=== PATIENT | female | born 1970 | race Caucasian/White ===

== ENCOUNTER 2018-12-19 06:02 | Inpatient (IN) ==
--- NOTE | 2018-12-03 08:44 | EKG Report ---
Test Performed on : 12/03/2018 08:25:42 AM Test Reason : PAT Blood Pressure : / mmHG Vent. Rate : 077 BPM Atrial Rate : 077 BPM P-R Int : 154 ms QRS Dur : 082 ms QT Int : 390 ms P-R-T Axes : 050 054 060 degrees QTc Int : 441 ms Normal sinus rhythm. Normal ECG No previous ECGs available Confirmed by Mika Trevizo MD ([id number]) on 12/03/2018 6:06:45 PM
[2018-12-19] MEDS ORDERED: REGLAN ONE (06:37)
[2018-12-19] MEDS ORDERED: PEPCID ONE (06:37)
[2018-12-19] MEDS ORDERED: LR 1,000 ML ONE ×2 (06:37→07:30)
[2018-12-19] MEDS ORDERED: MEFOXIN 2 GM/NS 2 GM/50 ML IVPB ONE (06:37)
[2018-12-19] MEDS ORDERED: ENTEREG ONE (06:37)
[2018-12-19] MEDS ORDERED: VERSED ONE (07:10)
[2018-12-19] MEDS ORDERED: DIPRIVAN 1% ONE (07:10)
[2018-12-19] MEDS ORDERED: FENTANYL ONE ×2 (07:10→11:41)
[2018-12-19] MEDS ORDERED: QUELICIN (DOSE) ONE (07:13)
[2018-12-19] MEDS ORDERED: ROBINUL ONE (07:13)
[2018-12-19] MEDS ORDERED: NORCURON ONE ×2 (07:13→10:22)
[2018-12-19] MEDS ORDERED: SODIUM CHLORIDE 0.9% 10 ML ONE ×2 (07:13→07:59)
[2018-12-19] MEDS ORDERED: XYLOCAINE-MPF 2% ONE (07:13)
[2018-12-19] MEDS ORDERED: MARCAINE 0.25% ONE (07:59)
[2018-12-19] MEDS ORDERED: EXPAREL 1.3% ONE (07:59)
[2018-12-19 09:15] LABS: URINE SOURCE CATH
[2018-12-19] MEDS ORDERED: ZOFRAN ONE (09:22)
[2018-12-19] MEDS ORDERED: DECADRON ONE (09:22)
[2018-12-19 09:26] LABS: BILIRUBIN URINE NEGATIVE (NEGATIVE); BLOOD URINE MODERATE (NEGATIVE); COLOR YELLOW; GLUCOSE URINE NEGATIVE (NEGATIVE); KETONE URINE NEGATIVE (NEGATIVE); LEUKOCYTES URINE NEGATIVE (NEGATIVE); NITRITE URINE NEGATIVE (NEGATIVE); PROTEIN URINE NEGATIVE (NEGATIVE); SP GRAVITY URINE 1.009; TURBIDITY URINE CLEAR (CLEAR); UROBILINOGEN URINE NORMAL (NORMAL)
[2018-12-19 09:27] LABS: UR EPITHELIAL CELLS <10 /HPF (<10); URINE BACTERIA NEGATIVE /HPF; URINE RBC <10 /HPF (<10); URINE WBC <10 /HPF (<10)
[2018-12-19] MEDS ORDERED: KETAMINE ONE (10:35)
[2018-12-19] MEDS: DILAUDID ONE ×7 (12:02→13:02)
[2018-12-19] MEDS ORDERED: D5 1/2 NS 1,000 ML ONE (12:03)
[2018-12-19] MEDS ORDERED: MORPHINE IM PRN (12:32)
[2018-12-19] MEDS ORDERED: ULTRAM ONE (12:50)
[2018-12-19] MEDS: ULTRAM PO PRN ×2 (12:55→15:38)
[2018-12-19] MEDS: OFIRMEV 1000 MG/ISOTONIC SOLN 1,000 MG/100 ML BOTTLE IV SCH ×2 (15:40→21:36)
[2018-12-19] MEDS: MEFOXIN 2 GM in D5W 50 ML IV SCH ×2 (17:06→21:41)
[2018-12-19] MEDS: MORPHINE IV PRN ×2 (17:29→21:51)
[2018-12-19] MEDS: ZOFRAN IV PRN (17:38)
--- NOTE | 2018-12-19 19:25 | OPERATIVE NOTE ---
PROCEDURE DATE: 12/19/2018 PREOPERATIVE DIAGNOSIS: History of complicated diverticulitis, perforation. POSTOPERATIVE DIAGNOSIS: Perforated diverticulitis. PROCEDURE: Laparoscopic robot-assisted converted to open low anterior resection with mobilization of the splenic flexure. SURGEON: Dr. Abdirashid Hernandez. ASSISTANTS: 1. Dr. Butcher. 2. Dr. Watson. ANESTHESIA: General endotracheal. INTRAOPERATIVE FINDINGS: As dictated. COMPLICATIONS: None at time dictation. EBL: 500 mL. SPECIMENS REMOVED: Colon. BRIEF HISTORY: A 48-year-old female with perforated diverticulitis felt she would benefit from a colectomy. The risks, benefits, alternatives were discussed and documented chart all questions answered. DESCRIPTION OF PROCEDURE: After informed consent was obtained patient brought to the operative theatre, transferred op table placed supine position. General endotracheal anesthesia then performed without complication. A formal time-out was then performed confirming patient, date, procedure. All were in agreement. At that time attention was given the abdomen. We placed our first trocar using Optiview technique in the supraumbilical position. We connected insufflation, pneumoperitoneum was achieved. We then placed another trocar skilled nursing just between the umbilicus and the anterior superior iliac spine and then 2 more trocars on the left side and bindery assistant port in the right upper quadrant. Using these we docked the robot. We first turned our attention to the abdomen. She had a significant attachment up to the abdominal wall. We did a medial lateral approach to sigmoid colon isolating the vessels, see if we could get a window across, we then elevated, continued dissection somewhat down the descending colon and down to the rectum. We freed it up enough and maintained hemostasis enough that we were able to use the stapler across the rectum right at the rectosigmoid junction with good results. It should be noted we did not injure the ureter. We stayed off the sidewall. There was a pus pocket that we drained. Once we had done this we made a left lower quadrant incision, eviscerated the colon, put a pursestring stitch around it after sizing up per 25 stapler then ducked it back in. We initially tried to do an end-to-end anastomosis with an EEA stapler robotically, the anvil ripped out of the proximal end. We therefore converted to open, made a midline incision, took down the attempted staple line to facilitate more reach. We mobilized the splenic flexure all the way up. We did this open. Once we had done this we were able to mobilize enough to do a side-to-end anastomosis. We brought this anvil through taenia of the proximal colon, brought it down to the rectum. We did use a TA to come across additional parts of the sigmoid colon. We then brought the stapler down did an EEA with good results. There was 2 donuts noted. We tested under water. It was air tight. We then irrigated out the abdomen copiously. We closed both the left lower quadrant in 2 layers and the midline incision with a running loop PDS. We then closed all skin incisions after irrigating with ally. The patient tolerated the procedure well, was transferred back to recovery room. Family was updated. Both Dr. Butcher and Dr. Watson helped with the case. They helped with exposure given the patient's obesity and identification of important anatomy. cc: Abdirashid Hernandez MD MTDD
[2018-12-19] MEDS: PERIDEX MT SCH (21:36)
[2018-12-19] MEDS: HEPARIN SUBQ SCH (21:37)
[2018-12-20] MEDS: ULTRAM PO PRN ×4 (00:08→17:05)
[2018-12-20] MEDS: MEFOXIN 2 GM in D5W 50 ML IV SCH ×2 (02:21→08:04)
[2018-12-20] MEDS: OFIRMEV 1000 MG/ISOTONIC SOLN 1,000 MG/100 ML BOTTLE IV SCH ×3 (04:15→10:34)
[2018-12-20] MEDS: HEPARIN SUBQ SCH ×3 (06:22→22:08)
[2018-12-20] MEDS ORDERED: ULTRAM PO PRN (07:12)
[2018-12-20] MEDS: D5 1/2 NS 1,000 ML IV SCH ×2 (07:15→20:02)
[2018-12-20] MEDS ORDERED: ZYPREXA PO SCH (07:15)
[2018-12-20] MEDS: KLONOPIN PO SCH ×2 (07:59→22:09)
[2018-12-20] MEDS: ENTEREG PO SCH ×2 (07:59→22:09)
[2018-12-20] MEDS: NEXIUM PO SCH (08:01)
[2018-12-20] MEDS: VASOTEC PO SCH ×2 (08:01→22:10)
[2018-12-20] MEDS: MAG-OX PO SCH (08:01)
[2018-12-20] MEDS: COREG PO SCH ×2 (08:01→22:09)
[2018-12-20] MEDS: HYDROCHLOROTHIAZIDE PO SCH ×2 (08:02→22:09)
[2018-12-20] MEDS: ZYLOPRIM PO SCH (08:02)
[2018-12-20] MEDS: NEURONTIN PO SCH ×3 (08:02→17:42)
[2018-12-20] MEDS: ASPIRIN PO SCH (08:02)
[2018-12-20] MEDS: PROTONIX PO SCH (08:02)
[2018-12-20] MEDS: METAMUCIL PO SCH (08:03)
[2018-12-20] MEDS: SYNTHROID PO SCH (08:03)
[2018-12-20] MEDS: PERIDEX MT SCH ×2 (08:03→20:47)
[2018-12-20] MEDS: VYVANSE PO SCH (08:05)
[2018-12-20] MEDS: MORPHINE IV PRN ×2 (10:44→20:47)
[2018-12-20] MEDS: PHENERGAN PO PRN ×2 (10:52→20:47)
[2018-12-20] MEDS ORDERED: TYLENOL PO PRN (15:00)
[2018-12-20] MEDS: PATIENT'S OWN MED PO SCH (17:01)
--- NOTE | 2018-12-20 18:24 | GENERAL SURGERY PROGRESS NOTE ---
DATE: 12/20/2018 SUBJECTIVE: The patient seems to be doing okay. She is having a little bit of acid reflux, a little bit of nausea but not terrible. She has not passed gas yet. She has been up and sitting in a chair. Her abdominal pain seems to be appropriate. She has been hemodynamically stable from a surgical point of view, will await return of bowel function, encourage mobilization. I will start her on Protonix. cc: Abdirashid Hernandez MD
[2018-12-21] MEDS: D5 1/2 NS 1,000 ML IV SCH (05:56)
[2018-12-21] MEDS: HEPARIN SUBQ SCH ×3 (05:56→22:50)
[2018-12-21] MEDS: PROTONIX PO SCH ×2 (05:57→06:01)
[2018-12-21] MEDS: SYNTHROID PO SCH ×2 (05:57→06:01)
--- NOTE | 2018-12-21 09:20 | GENERAL SURGERY PROGRESS NOTE ---
DATE: 12/21/2018 Patient with a little bit of nausea and some emesis of clear liquids yesterday. She is having some difficulty getting up and moving around, but she has been hemodynamically stable. From a surgical point of view, will keep her on her diet right now. Will try to get Physical Therapy to mobilize her. Will get her Dubose catheter out today. She is on heparin. She is on Entereg. We have got her on pain medicine. Will try to get her through this, and await return of bowel function. cc: Abdirashid Hernandez MD
[2018-12-21] MEDS: ZOFRAN IV PRN ×2 (09:26→22:52)
[2018-12-21] MEDS: VASOTEC PO SCH ×2 (09:32→22:54)
[2018-12-21] MEDS: ASPIRIN PO SCH (09:32)
[2018-12-21] MEDS: MAG-OX PO SCH (09:32)
[2018-12-21] MEDS: ZYLOPRIM PO SCH (09:32)
[2018-12-21] MEDS: NEXIUM PO SCH (09:33)
[2018-12-21] MEDS: METAMUCIL PO SCH (09:33)
[2018-12-21] MEDS: KLONOPIN PO SCH ×2 (09:33→22:51)
[2018-12-21] MEDS: ENTEREG PO SCH ×2 (09:33→22:51)
[2018-12-21] MEDS: COREG PO SCH ×2 (09:33→22:52)
[2018-12-21] MEDS: HYDROCHLOROTHIAZIDE PO SCH ×2 (09:33→22:53)
[2018-12-21] MEDS: PERIDEX MT SCH ×2 (09:34→22:51)
[2018-12-21] MEDS: NEURONTIN PO SCH ×2 (15:27→17:01)
[2018-12-21] MEDS: VYVANSE PO SCH (15:27)
[2018-12-21] MEDS: PATIENT'S OWN MED PO SCH (15:28)
[2018-12-21] MEDS: PHENERGAN PO PRN (15:46)
[2018-12-21] MEDS: MORPHINE IV PRN (22:52)
[2018-12-22] MEDS: SYNTHROID PO SCH (06:33)
[2018-12-22] MEDS: PROTONIX PO SCH (06:33)
[2018-12-22] MEDS: PHENERGAN PO PRN ×2 (06:33→21:42)
[2018-12-22] MEDS: HEPARIN SUBQ SCH ×3 (06:33→21:30)
--- NOTE | 2018-12-22 06:53 | GENERAL SURGERY PROGRESS NOTE ---
DATE: 12/22/2018 SUBJECTIVE: Patient is doing about the same. Feels like she needs to go the bathroom. OBJECTIVE: Vital Signs: The patient is currently afebrile. Her vital signs are stable. General Examination: No acute distress. Cardiovascular: Regular rate and rhythm. Lungs: Grossly clear. Abdomen: Soft. Appropriately tender. Incisions with some drainage. Bowel sounds auscultated. ASSESSMENT AND PLAN: A 48-year-old female, currently postoperative day #3 from open low anterior resection with mobilization of splenic flexure. Postoperative state. At this time, the patient needs to ambulate and continue to mobilize. She is doing okay from a surgical point of view. She is going to probably have a difficult recovery given her body habitus, but we will try to continue to support her through this. She is on Entereg, heparin, has SCDs on, and on pain medicine. We will try to encourage her to ambulate more today. cc: Abdirashid Hernandez MD
[2018-12-22] MEDS: ZOFRAN IV PRN (08:28)
[2018-12-22] MEDS: METAMUCIL PO SCH (10:08)
[2018-12-22] MEDS: MAG-OX PO SCH (10:08)
[2018-12-22] MEDS: ENTEREG PO SCH ×2 (10:08→21:29)
[2018-12-22] MEDS: NEXIUM PO SCH (10:08)
[2018-12-22] MEDS: ZYLOPRIM PO SCH (10:08)
[2018-12-22] MEDS: ASPIRIN PO SCH (10:09)
[2018-12-22] MEDS: PERIDEX MT SCH ×2 (10:09→21:30)
[2018-12-22] MEDS: KLONOPIN PO SCH ×2 (10:09→21:29)
[2018-12-22] MEDS: NEURONTIN PO SCH ×2 (10:13→18:37)
[2018-12-22] MEDS: VYVANSE PO SCH (10:14)
[2018-12-22] MEDS: PATIENT'S OWN MED PO SCH (10:14)
[2018-12-22] MEDS: D5 1/2 NS 1,000 ML IV SCH ×2 (12:29)
[2018-12-22] MEDS: MORPHINE IV PRN (18:31)
[2018-12-22] MEDS: COREG PO SCH ×2 (18:36→21:29)
[2018-12-22] MEDS: HYDROCHLOROTHIAZIDE PO SCH ×2 (18:37→21:29)
[2018-12-22] MEDS: VASOTEC PO SCH ×2 (18:37→21:29)
[2018-12-22] MEDS: ULTRAM PO PRN (21:42)
[2018-12-23] MEDS ORDERED: NORCO-5 PO PRN (05:32)
[2018-12-23] MEDS: SYNTHROID PO SCH (06:08)
[2018-12-23] MEDS: HEPARIN SUBQ SCH ×3 (06:09→23:31)
[2018-12-23] MEDS: PROTONIX PO SCH (06:09)
[2018-12-23] MEDS: PERIDEX MT SCH ×2 (09:31→23:31)
[2018-12-23] MEDS: MAG-OX PO SCH (09:31)
[2018-12-23] MEDS: VASOTEC PO SCH ×2 (09:31→23:30)
[2018-12-23] MEDS: NEXIUM PO SCH (09:31)
[2018-12-23] MEDS: HYDROCHLOROTHIAZIDE PO SCH ×2 (09:31→23:31)
[2018-12-23] MEDS: ASPIRIN PO SCH (09:31)
[2018-12-23] MEDS: METAMUCIL PO SCH (09:31)
[2018-12-23] MEDS: COREG PO SCH ×2 (09:32→23:30)
[2018-12-23] MEDS: KLONOPIN PO SCH ×2 (09:32→23:39)
[2018-12-23] MEDS: ZYLOPRIM PO SCH (09:32)
[2018-12-23] MEDS: ENTEREG PO SCH ×2 (09:32→23:31)
[2018-12-23] MEDS: PATIENT'S OWN MED PO SCH (09:33)
[2018-12-23] MEDS: VYVANSE PO SCH (09:33)
[2018-12-23] MEDS: NEURONTIN PO SCH ×3 (09:33→18:15)
--- NOTE | 2018-12-23 10:30 | GENERAL SURGERY PROGRESS NOTE ---
DATE: 12/23/2018 SUBJECTIVE: Patient says she is feeling a little bit better. Nursing staff reports no major issues. OBJECTIVE: Vital Signs: The patient is currently afebrile. Vital signs are stable. General Examination: No acute distress. Cardiovascular: Regular rate and rhythm. Lungs: Grossly clear. Abdomen: Soft, appropriately tender. Some serosanguineous drainage from her lower aspect of her incision. Dressing removed and inspected. No signs of erythema. Laboratory: None. ASSESSMENT AND PLAN: A 48-year-old female, currently postoperative day #4 from open low anterior resection with mobilization of splenic flexure. Postoperative state. At this time, she is on a gastrointestinal soft diet. She is passing gas. She is showing some signs of return of bowel function. We will need to encourage continued ambulation. We will start her on some oral pain medicine and stop her intravenous pain medicine. She is on Entereg, heparin, and sequential compression devices. We will see how she does. Hopefully, she can be discharged in the next 24 to 48 hours. cc: Abdirashid Hernandez MD
[2018-12-23] MEDS: ULTRAM PO PRN (13:45)
[2018-12-23] MEDS: ZOFRAN IV PRN (13:46)
[2018-12-23] MEDS: D5 1/2 NS 1,000 ML IV SCH ×2 (20:03→23:29)
[2018-12-24] MEDS: SYNTHROID PO SCH (06:50)
[2018-12-24] MEDS: HEPARIN SUBQ SCH (06:50)
[2018-12-24] MEDS: PROTONIX PO SCH (06:51)
--- NOTE | 2018-12-24 06:57 | GENERAL SURGERY PROGRESS NOTE ---
DATE: 12/24/2018 SUBJECTIVE: Patient is doing well. She has had bowel movements. She is tolerating a regular diet. She is up and ambulating. She wants to go home. We will try to make arrangements. She has been hemodynamically stable. I think at this point, it is safe to discharge her home. We will try to make arrangements. She is currently postoperative day #5 from open low anterior resection with mobilization of splenic flexure. cc: Abdirashid Hernandez MD
--- NOTE | 2018-12-24 07:09 | DISCHARGE SUMMARY ---
ADMISSION DATE: 12/19/2018 DISCHARGE DATE: 12/24/2018 ADMITTING DIAGNOSIS: Diverticulitis. DISCHARGE DIAGNOSIS: Status post low anterior resection and mobilization of splenic flexure. ADMITTING PHYSICIAN: Abdirashid Hernandez M.D. CONSULTATIONS: None. PROCEDURES: On 12/19/2018, the patient underwent laparoscopic robot-assisted converted to open low anterior resection with mobilization of splenic flexure. BRIEF HISTORY AND COURSE OF STAY: A 48-year-old female who was admitted for previously described procedure. The procedure was initially started robotically, and then converted to open. She tolerated the procedure well. She was brought up to the floor. In the postoperative period, we slowly advanced her diet in the enhanced recovery after surgery protocol. She seemed to do well. She did have some issues with drainage from her incision, but that seemed to improve. On postoperative day #5, it was felt that she was up and ambulating. She was having bowel movements. She was tolerating a regular diet. She had been afebrile. She had been hemodynamically stable. Therefore, we felt it was safe for her to go home. All arrangements were made, and we discussed this with the patient. She is wanting to go home. DISPOSITION: Home. DISCHARGE CONDITION: Stable. FOLLOWUP: The patient was told to follow up with Dr. Hernandez in 1 to 2 weeks. DISCHARGE MEDICATIONS: She was given a prescription for Vansant 5, and she is also to continue her home medications. cc: Abdirashid Hernandez MD
[2018-12-24 07:51] VITALS: BP 128/57
[2018-12-24] MEDS: COREG PO SCH (07:58)
[2018-12-24] MEDS: MAG-OX PO SCH (07:58)
[2018-12-24] MEDS: PERIDEX MT SCH (07:58)
[2018-12-24] MEDS: METAMUCIL PO SCH (07:59)
[2018-12-24] MEDS: ENTEREG PO SCH (07:59)
[2018-12-24] MEDS: ASPIRIN PO SCH (07:59)
[2018-12-24] MEDS: KLONOPIN PO SCH (07:59)
[2018-12-24] MEDS: ZYLOPRIM PO SCH (07:59)
[2018-12-24] MEDS: NEXIUM PO SCH (07:59)
== END 2018-12-24 12:22 | disposition home or self-care (01) | DRG 330 ==
LOC: SURHOLD 06:02 → 4N 13:31
PROVIDERS: ADMIT Surgery; ATTEND Surgery
CPT/HCPCS: 81001; 88307; 93005; 93010; 94761; 94799; 97161; 97530; A9270; C9290; J0131; J0330; J0694; J1100; J1170; J1644; J2250; J2270; J2405; J3010; J7060; J7120; S0020

== ENCOUNTER 2019-01-14 11:46 | Inpatient (IN) ==
[2019-01-14] MEDS ORDERED: NS 500 ML IV ONE (11:55)
--- NOTE | 2019-01-14 12:01 | PROVIDER DOCUMENTATION ---
HPI-General Adult - General Stated Complaint: LOW POTASSIUM Time Seen by Provider: 01/14/19 11:54 Source: patient Allergies/Adverse Reactions: Patient Allergies Allergy/AdvReac Type Severity Reaction Status Date / Time Penicillins Allergy RASH Verified 01/14/19 12:10 Home Medications: Home Medication List Medication Instructions Recorded Confirmed Last Taken Type Allopurinol 1 tab PO DAILY 10/06/18 12/03/18 12/19/18 05:00 History Aspirin 325 mg PO DAILY 10/06/18 12/19/18 12/14/18 History Carvedilol 1 tab PO BID 10/06/18 12/19/18 12/19/18 04:45 History Enalapril/Hydrochlorothiazide 1 tab PO BID 10/06/18 12/03/18 12/18/18 20:00 History [Enalapril-Hctz 5-12.5 mg Tab] Esomeprazole Magnesium [Nexium] 1 tab PO DAILY 10/06/18 12/03/18 12/19/18 05:00 History Gabapentin 1 tab PO TID 10/06/18 12/03/18 12/19/18 05:00 History Olanzapine 1 tab PO DIRECTED 10/06/18 12/03/18 Unknown History Tramadol HCl 1 tab PO PRN PRN 10/06/18 12/03/18 10/06/18 07:00 History Clonazepam 1 mg PO BID #14 tab 10/10/18 12/03/18 12/19/18 05:00 Rx Levothyroxine [Synthroid] 50 microgm PO DAILY 12/03/18 12/19/18 12/18/18 History Lisdexamfetamine Dimesylate 20 mg PO DAILY 12/03/18 12/03/18 12/18/18 20:00 History [Vyvanse] Magnesium Oxide [Mag-Ox] 400 mg PO DAILY 12/03/18 12/03/18 12/19/18 05:00 History Promethazine [Phenergan] 25 mg PO Q6H PRN PRN 12/03/18 12/03/18 Unknown History Psyllium Husk [Metamucil] 1 ea PO DAILY 12/03/18 12/03/18 12/18/18 20:00 History Turmeric [Curcumin] 500 gm MC DAILY 12/03/18 12/03/18 12/19/18 05:00 History Hydrocodone/Acetaminophen [[place] 1 - 2 tab PO Q4-6H PRN PRN #30 tab 12/24/18 Unknown Rx 5-325 Tablet] - History of Present Illness -Gen Adult Nature of Presenting Problems: 48yof presents to ED c/o low blood counts and potassium on her OP labs this week. She states she had a colon resection 2 weeks ago and has a wound vac in place. She denies fever/chills/N/V/GI bleeding/black or bloody stools/chest pain/SOB. Location of Pain/Injury: reports: none Pain Radiation: reports: no radiation Quality of Pain: reports: none Severity: reports: moderate Onset/Duration: reports: gradual Context/Activities at Onset: reports: none Modifying Factors: improves with: nothing Associated Symptoms: reports: denies symptoms Similar Symptoms Previously?: No Recently seen or treated by another doctor?: No Review of Systems - Adult - REVIEW OF SYSTEMS - ADULT Constitutional: reports: no symptoms reported Eyes: reports: no symptoms reported Ears, Nose, Mouth & Throat: reports: no symptoms reported Cardiovascular: reports: no symptoms reported Respiratory: reports: no symptoms reported Gastrointestinal: reports: no symptoms reported Genitourinary: reports: no symptoms reported Musculoskeletal: reports: no symptoms reported Integumentary: reports: no symptoms reported Neurological: reports: no symptoms reported Psychiatric: reports: no symptoms reported Endocrine: reports: no symptoms reported Hematologic/Lymphatic: reports: no symptoms reported Allergic/Immunologic: reports: no symptoms reported All Other Systems: Reviewed and Negative Past History - Adult - PAST MEDICAL HISTORY-ADULT Review of Records: reports: Old Records Reviewed, Nursing Assessment Review, Medications Reviewed, Social history reviewed & non-contributory. Major Childhood Illnesses: reports: denies history Cardiovascular: reports: HTN Respiratory: reports: denies history Gastrointestinal: reports: GERD Obstetrical/Gynecological: reports: denies history Genitourinary: reports: denies history Musculoskeletal: reports: denies history Neurological: reports: denies history Psychiatric: reports: bipolar Endocrine/Immune: reports: denies history Other Conditions: reports: denies history - PRIOR SURGERIES/PROCEDURES Surgical/Procedure History: reports: reviewed, not pertinent, BTL - IMMUNIZATION STATUS Childhood Immunizations: See Nurse Assessment Flu Vaccine: See Nurse Assessment - FAMILY HISTORY Family History: reviewed, not pertinent - SOCIAL HISTORY Smoking: non-smoker Living Situation: family Physical Exam-General - PHYSICAL EXAM-ADULT Initial Vital Signs Reviewed: Yes - CONSTITUTIONAL General Appearance: appears well, alert, no apparent distress - EYES Eyes: PERRL/EOMI, pink conjunctivae - HEAD, EARS, NOSE, MOUTH & THROAT HENMT: normocephalic/atraumatic, moist mucous membranes, normal ENT inspection, TMs normal, pharynx normal - NECK Neck: non-tender, full range of motion, supple, normal inspection - RESPIRATORY Respiratory: chest non-tender, lungs clear, normal breath sounds, no pleuratic chest pain, no respiratory distress, no accessory muscle use - CARDIOVASCULAR Cardiovascular: normal peripheral pulses, regular rate, rhythm, no edema, no gallop, no JVD, no murmur - GASTROINTESTINAL (ABDOMEN) Abdominal Exam: normal bowel sounds, non tender, soft - LYMPHATIC Lymphatic: no adenopathy - MUSCULOSKELETAL Back Exam: normal inspection, no CVA tenderness Extremity: normal range of motion, non-tender, normal gait, normal inspection - SKIN Integumentary: normal turgor, warm/dry, other (pale pink) - NEUROLOGIC Neurologic: rn ortho II-XII nml as tested, grossly normal, no motor/sensory deficits - PSYCHIATRIC Psych/Mental Status: normal mood/affect, normal thought content, normal thought process, oriented x 3 Progress - PLAN OF CARE/RESULTS Progress/Plan/Lab Results: Orders Category Date Time Status CBC WITH DIFF [HEME] Stat Lab 01/14/19 11:55 Uncollected COMPREHENSIVE METABOLIC PANEL [CHEM] Stat Lab 01/14/19 11:55 Uncollected TYPE & SCREEN [BBK] Stat Lab 01/14/19 11:55 Uncollected URINALYSIS W/POSS RFLX CULT [URINALYSIS] Stat Lab 01/14/19 11:55 Uncollected 0.9% Sodium Chloride Inj [Ns] 500 ml Med 01/14/19 11:55 Active IV 999 mls/hr Result Diagrams: 01/14/19 12:20 01/14/19 12:20 - REASSESSMENT Reassessment #1 Time Reassessed: 14:10 (Discussed results and treatment plan with pt, she agrees. Discussed pt with LONNY Davis for hospitalist service who accepts for admit and states she recommends 80mEq KDur PO and that she will place additional IV K orders.) Reassessment #2 Time Reassessed: 14:11 (Discussed pt with Dr. Rea, who agrees with admit plan.) Departure - Departure Date of Disposition Decision: 01/14/19 Time of Disposition Decision: 14:09 DIAGNOSIS: Hypokalemia, Hyponatremia Disposition: ADMITTED INPATIENT 09 Certified Medical Emergency: Emergent Condition: Stable Referrals and Follow-Ups: Barbara Barker CRNP [Primary Care Provider] - - Critical Care Note This patient required my direct & personal management of CC.: No Attestation - Physician/ NGA Attestation Patient care was provided by Advanced Practice Provider:: Yes Advanced Practice Provider:: Taylor Dixon Advanced Practice Provider documentation review:: The Mid-level provider documentation, treatment plan and medical decision making was reviewed by the physician who agrees with all treatment and medical decision making by the MLP. The physician spent face to face time with patient:: No Advanced Practice Provider documentation review:: Supervising physician onsite and consulted in the evaluation and care of this patient. The physician did not have a face to face encounter with the patient.
[2019-01-14 12:39] LABS: BASO# 0.03 X1000 (0.0-0.2); BASO% 0.3 % (0.0-0.8); HEMATOCRIT 30.3 % (37.0-47.0); HEMOGLOBIN 10.2 g/dL (12.0-16.0); IMM GRAN# 0.06 X1000 (0.0-0.04); IMM GRAN% 0.5 % (0.0-0.5); LYMPH# 1.78 X1000 (1.2-3.4); LYMPH% 15.6 % (20.5-51.1); MCH 27.8 PG (27-31); MCHC 33.7 g/dL (33-37); MCV 82.6 FL (81-99); MONO% 6.1 % (1.7-9.3); MPV 9.7 FL (7.4-10.4); NEUT# 8.87 X1000 (1.4-6.5); NEUT% 77.5 % (42.2-75.2); PLT 361 X1000 (130-400); RBC 3.67 XMIL (4.2-5.4); RDW 12.9 % (11.5-14.5); WBC 11.44 X1000 (4.8-10.8)
--- NOTE | 2019-01-14 12:43 | Diag Imaging Result Doc PS360 ---
EXAM: CHEST-1 VIEW 01/14/2019 HISTORY: weakness TECHNIQUE: AP portable at 1232 COMMENT: There is cardiomegaly. There is no evidence of acute pulmonary disease. IMPRESSION: Cardiomegaly. Electronically signed by Kurt Young 01/14/2019 12:40 PM
[2019-01-14 12:55] LABS: AGAP 13; ALB/GLOB RATIO 0.8; ALBUMIN 2.8 g/dL (3.5-5.0); ALKALINE PHOSPHATASE 90 U/L (32-104); BUN 16 mg/dL (8-22); CALCIUM 8.7 mg/dL (8.8-10.2); CHLORIDE 69 mmol/L (98-107); COSMO 262; CREATININE 0.6 mg/dL (0.5-0.9); ESTIMATED GFR > 60; GLUCOSE 132 mg/dL (70-104); GOT 19 U/L (10-30); GPT 10 U/L (10-36); SODIUM 129 mmol/L (136-145); TCO2 47 mmol/L (25-35); TOTAL BILIRUBIN 0.61 mg/dL (0.20-1.00); TOTAL PROTEIN 6.2 g/dL (6.3-8.3)
--- NOTE | 2019-01-14 12:58 | EKG Report ---
Test Performed on : 01/14/2019 12:05:34 PM Test Reason : weakness Blood Pressure : / mmHG Vent. Rate : 074 BPM Atrial Rate : 074 BPM P-R Int : 146 ms QRS Dur : 100 ms QT Int : 472 ms P-R-T Axes : 021 009 -39 degrees QTc Int : 523 ms Normal sinus rhythm. Anterior infarct , age undetermined ST & T wave abnormality, consider inferolateral ischemia Prolonged QT Abnormal ECG When compared with ECG of 03-DEC-2018 08:25, Non-specific change in ST segment in Lateral leads T wave inversion now evident in Inferior leads T wave inversion now evident in Anterolateral leads QT has lengthened Unconfirmed Result
[2019-01-14] MEDS ORDERED: KLOR-CON PO ONE ×2 (13:46→14:08)
[2019-01-14] MEDS ORDERED: ULTRAM PO ONE (14:01)
[2019-01-14] MEDS ORDERED: POTASSIUM CHLORIDE 40 MEQ/SWI 40 MEQ/100 ML IVPB IV ONE (14:10)
[2019-01-14] MEDS ORDERED: NS + KCL 40 MEQ 1,000 ML IV ONE ×4 (14:10→23:00)
[2019-01-14] MEDS: POTASSIUM CHLORIDE 20 MEQ/SWI 20 MEQ/100 ML IVPB IV SCH ×2 (14:53→18:45)
[2019-01-14] MEDS ORDERED: TYLENOL PO PRN (15:20)
[2019-01-14] MEDS ORDERED: ZOFRAN IV PRN (15:20)
[2019-01-14 15:53] LABS: URINE SOURCE CLEAN CATCH
[2019-01-14 16:02] LABS: BILIRUBIN URINE NEGATIVE (NEGATIVE); BLOOD URINE MODERATE (NEGATIVE); COLOR ORANGE; GLUCOSE URINE NEGATIVE (NEGATIVE); KETONE URINE NEGATIVE (NEGATIVE); LEUKOCYTES URINE TRACE (NEGATIVE); NITRITE URINE NEGATIVE (NEGATIVE); PH URINE 5.5; PROTEIN URINE NEGATIVE (NEGATIVE); TURBIDITY URINE HAZY (CLEAR); UROBILINOGEN URINE NORMAL (NORMAL)
--- NOTE | 2019-01-14 16:02 | HISTORY AND PHYSICAL ---
HISTORY OF PRESENT ILLNESS: This is a 48-year-old who had an anterior colectomy a month ago. She was admitted on 12/19. The surgery was, I think, on 12/19. She had a laparoscopic robot-assisted which was converted to open lower anterior resection and mobilization of the splenic flexure. She had a little difficulty with wound healing. She has a wound VAC on there now. She says she has not felt real good since surgery and got very weak and lethargic, was hard for her to walk. She felt like she had some chills. Did not record any fever, but subjective chills. In the emergency room her potassium was 2.0, chloride 69, BUN 16, sodium was 129, magnesium 1.9. She appeared to be mild vascular volume depleted with a dry mouth. Blood pressure was 121/62. So plan to admit her for hydration. Her left lower abdomen, she complained of pain but just superficial pain. Did not appreciate much in the way of cellulitis. PAST MEDICAL HISTORY: 1. Bipolar, schizophrenia. 2. Hypertension. 3. Gastroesophageal reflux disease. PAST SURGICAL HISTORY: She had an anterior colectomy. FAMILY HISTORY: Denies any history of heart disease or diabetes. SOCIAL HISTORY: She is . Recently lost her oldest daughter, raising 3 grandchildren, ages 12, 14 and 16. She does smoke some marijuana, about once a week. ALLERGIES: Penicillin which causes rash. MEDICATIONS: 1. She is on allopurinol. 2. Coreg 1 twice a day. 3. Clonazepam 1 tablet 4 times a day. 4. Quinapril hydrochlorothiazide /.5 one b.i.d. 5. Nexium 40 mg a day. 6. Gabapentin 1 tablet t.i.d. 7. Vyvanse 20 mg a day. 8. Olanzapine 1 tablet as directed. 9. Tramadol 1 tablet p.r.n. for pain. REVIEW OF SYSTEMS: She denies recorded fever but she has had some chills.HEENT: No change in visual or hearing acuity reported. Neck: No neck pain. No cervical adenopathy. Respiratory: No increased work of breathing or dyspnea. Cardiovascular: No chest pain or tachy palpitation. GI/: Her bowels have been moving appropriately. No blood in the stool. No nausea. No gross hematuria or dysuria. Musculoskeletal/Neurologic: No focal complaints. Endocrinologic/Hematologic: No significant history. PHYSICAL EXAMINATION: VITAL SIGNS: Temperature 98.0 degrees, pulse 76, respirations 16, blood pressure 121/62. Weight 270 pounds. Height 5 feet 8 inches. HEENT: Pupils are equal and round. No oral or nasal mucosa lesions. NECK: No distended neck veins. CVP less than 6 cm from the right atrium. LUNGS: Clear in all lung ribera. CARDIOVASCULAR: Regular rhythm and rate without murmur or S3. ABDOMEN: Soft, nondistended. She has some very superficial tenderness in that left lower quadrant along her midline incision. She has a wound VAC in place. No ulcerations. I do not see any active drainage. SKIN: Warm and dry. No other sign of skin rash. EXTREMITIES: No pedal edema. LABORATORY DATA: White count 11,440, hematocrit is 30, with an MCV of 82, platelet count is 361,000. Sodium 129, potassium 2.0, chloride 69, bicarb 47, BUN 16, creatinine 0.6, calcium 8.7, AST is 19, ALT is 10. Troponin was less than 0.01. Albumin 2.8. Chest x-ray: Cardiomegaly. No sign of infiltrate. No acute pulmonary disease. ASSESSMENT AND PLAN: 1. Hyponatremia with volume depletion. We will give her normal saline, run it in at 100 mL an hour. We will add 40 mEq of KCl to each liter. Make sure we check her potassium and magnesium again in the morning. We will check a T4 and TSH. Check a B12 and folate in the morning. 2. She has had some chills. She does not have an impressive white count, nor any real tenderness in the abdomen. She is allergic to penicillin. I am going to hold off on antibiotics at this time. 3. Recent anterior resection I believe of the colon. I think it was done by Dr. Hernandez. We will get Dr. Hernandez to help follow along, see if he has any suggestions. I do not know if we need to repeat a CT of the abdomen. We will see what he wants to do. 4. Bipolar, schizophrenia. We will continue her medication. She was taking clonazepam 1 mg b.i.d. at home. She is on gabapentin 1 t.i.d. She is on Vyvanse 20 mg daily. 5. History of gout. Continue allopurinol. 6. History of hypothyroidism. Continue her Synthroid 50 mcg a day. Check her T4 and TSH. 7. She was requesting something stronger for pain, so we will try the Percocet. I think she was taking Ultram at home, but we will try the Percocet and see how we do. 8. Blood pressure. Continue her current medications. Blood pressure appears appropriate. cc: Guy Carter MD
[2019-01-14 16:05] LABS: UR EPITHELIAL CELLS >10 /HPF (<10); URINE BACTERIA NEGATIVE /HPF; URINE RBC 20-40 /HPF (<10); URINE WBC <10 /HPF (<10)
--- NOTE | 2019-01-14 17:56 | GENERAL SURGERY CONSULTATION ---
DATE: 01/14/2019 REQUESTING PHYSICIAN: Dr. Carter REASON FOR CONSULTATION: Dehydration and abdominal pain. HISTORY OF PRESENT ILLNESS: A 48-year-old female who I did an anterior colectomy on robotically almost 1 month ago, who I have been seeing in the office. She has had some issues with wound healing. She came into the emergency department for low blood counts and outpatient labs. She had been up moving around. Her bowels have been moving normal. She does have some tenderness in left lower quadrant incision. She has been admitted for electrolyte abnormalities. PAST MEDICAL HISTORY: 1. Bipolar schizophrenia. 2. Hypertension. 3. Gastroesophageal reflux disease. PAST SURGICAL HISTORY: Includes recent low anterior colectomy. FAMILY HISTORY: Reviewed with the patient and noncontributory. SOCIAL HISTORY: . Lives at home. ALLERGIES: Penicillin. HOME MEDICATIONS: Reviewed. REVIEW OF SYSTEMS: A full 14-system review of systems obtained and negative except as specified in HPI. PHYSICAL EXAMINATION: Vital Signs: Patient is currently afebrile. Her vital signs are stable. General: No acute distress. Alert, interactive, obese female, looks stated age. HEENT: Normocephalic, atraumatic. Pupils equal, round, reactive to light. Mucous membranes moist. Oropharynx benign. Neck: Supple, trachea midline. Cardiovascular: Regular rate and rhythm. Lungs: Grossly clear. Abdomen: Soft. Wound VAC in place. In her left lower quadrant, there is a little bit of a bulge with some erythema. She is tender to palpation in this area. I do not see a change with Valsalva. Extremities: Moves all extremities. Neurologic: Grossly intact. Skin: No signs of jaundice. Vascular: All extremities perfused. LABORATORY REVIEW: White blood count is 11, hematocrit 30, platelet count 361,000. Sodium is 129, potassium is 2, chloride 69, bicarbonate of 47. Remainder of labs reviewed. Chest x-ray reviewed. ASSESSMENT AND PLAN: A 48-year-old female with electrolyte abnormalities and abdominal pain. 1. Electrolyte abnormalities. At this time she is being resuscitated by Dr. Carter with the hospitalist. I appreciate his help. We will continue resuscitation process. 2. Abdominal pain. At this time, she has some tenderness in the left lower quadrant. There is some fullness. We will get a CT scan to see if there is a hernia versus fluid collection and monitor. cc: Abdirashid Hernandez MD
--- NOTE | 2019-01-14 20:26 | Diag Imaging Result Doc PS360 ---
EXAM: CT ABD/PELVIS W/PO AND IV CON HISTORY: abdominal pain on left lower quadrant incision TECHNIQUE: CT abdomen and pelvis with intravenous and oral contrast. COMPARISON: 10/23/2018 FINDINGS: The gallbladder is contracted. There is mild fatty infiltration of the liver. Normal spleen, pancreas, adrenal glands, and kidneys. No hydronephrosis. Normal aorta. There are small mesenteric and para-aortic nodes. There is a large amount of subcutaneous air and fluid in the subcutaneous tissues of the lower left abdominal wall. There is a small amount of central hyperdense material. The area measures approximately 7 x 7 x 7.5 cm. Poorly defined peripheral wall. There are sutures in the sigmoid colon. 1.8 cm hypodense collection adjacent to the descending colon. No free air adjacent to the sutures in the sigmoid colon. Small amount of air in the midline near the sutures is likely within the appendix. Urinary bladder is moderately distended and is normal. Normal uterus. IMPRESSION: Development of a new air and fluid subcutaneous collection with questionable oral contrast in the left abdominal and anterior pelvic wall which could represent a sinus tract or fistula. The results were discussed and images reviewed with Dr. Hernandez at 8:25 PM This exam was performed using automated exposure control, adjustment of mA or kV according to patient size, and/or use of iterative reconstruction technique. Electronically signed by Cristhian Colon 01/14/2019 8:24 PM
[2019-01-14] MEDS: NEURONTIN PO SCH (20:45)
[2019-01-14] MEDS ORDERED: KLONOPIN PO SCH (21:00)
[2019-01-14] MEDS ORDERED: VASOTEC PO SCH (21:00)
[2019-01-14] MEDS: HYDROCHLOROTHIAZIDE PO SCH (22:45)
[2019-01-14] MEDS: COREG PO SCH (22:45)
[2019-01-14] MEDS: VASOTEC PO SCH (22:45)
[2019-01-14] MEDS: KLONOPIN PO SCH (23:05)
[2019-01-15] MEDS ORDERED: MORPHINE IV ONE (05:29)
[2019-01-15] MEDS ORDERED: XYLOCAINE 1% INJ ONE (05:33)
--- NOTE | 2019-01-15 05:46 | GENERAL SURGERY PROGRESS NOTE ---
DATE: 01/15/2019 SUBJECTIVE: Patient says she is feeling better. I reviewed the CT scan last night with Dr. Colon. There is some development of a fluid collection in subcutaneous area that measures 7 x 7 x 7.5. This may represent abscess versus even the possibility of fistula tract from her small bowel, since there is a small amount of contrast in the area. The anastomosis itself looks intact with no obvious signs of leakage around it. OBJECTIVE: Vital Signs: Patient is currently afebrile. Her vital signs have been stable. General: No acute distress. HEENT: Normocephalic, atraumatic. Pupils equal, round, reactive to light. Mucous membranes moist. Oropharynx benign. Neck: Supple. Trachea midline. Cardiovascular: Regular rate and rhythm. Lungs: Grossly clear. Abdomen: Soft. Tenderness in the left lower quadrant at the old incision. Wound VAC has been removed. Extremities: Moves all extremities. Neurologic: Grossly intact. Skin: Area of erythema noted around the left lower quadrant. Vascular: All extremities perfused. LABORATORY: None this morning as of yet. IMAGING: As noted above. ASSESSMENT AND PLAN: A 48-year-old female with electrolyte abnormalities and abdominal pain. 1. Electrolyte abnormalities. At this time, continue resuscitation. I appreciate Dr. Carter's help. 2. Abdominal pain. At this time, she does have what looks like a fluid collection in the left lower quadrant. The possibilities include abscess versus seroma versus hematoma versus even the possibility of a fistula tract. I do not see a hernia at this area. I discussed this extensively with the patient. We will plan on making a small incision and draining the fluid here at the bedside. Discussed with her the risks, benefits, alternatives. We will try to do it at the bedside. If there is a fistula tract, we will place an ostomy appliance over it to try to control it. If this is an abscess, we will drain it. At this point, we will continue to monitor her, if it is an abscess, we will start her on antibiotics. cc: Abdirashid Hernandez MD
--- NOTE | 2019-01-15 06:26 | OPERATIVE NOTE ---
PROCEDURE DATE: 01/15/2019 PREOPERATIVE DIAGNOSIS: Left lower quadrant fluid collection. POSTOPERATIVE DIAGNOSIS: Likely left lower quadrant abscess. PROCEDURE: Incision and drainage of left lower quadrant fluid collection. SURGEON: Abdirashid Hernandez MD. CREW MESS ATTENDANT: None. ANESTHESIA: Local administered by the surgeon. FINDINGS: Foul-smelling what looked like purulence drained from the incision. Cultures taken. ESTIMATED BLOOD LOSS: 5 mL. COMPLICATIONS: None immediate at time of this dictation. BRIEF HISTORY: A 48-year-old female who I had done a robotic converted to open low anterior resection a month ago. We made an incision in left lower quadrant during the robotic procedure. She developed a fluid collection and erythema there, and tenderness. There was some concern on CT scan that she could potentially be developing a fistula tract versus just an abscess. Regardless, she was having discomfort. It is felt that she needed this drained. The risks, benefits, and alternatives were discussed with the patient. All questions answered. DESCRIPTION OF PROCEDURE: After informed consent was obtained, the patient remained in her room on the floor. We used local anesthetic to anesthetize the skin. We elected to go on the lateral aspect of the incision to make, if it was a fistula tract, a long the tract. We made an incision after prepping the area with alcohol. Using an 11 blade, we made the incision. With a combination of the 11 blade and the blunt dissection, I was able to bluntly dissect into the cavity. We drained foul-smelling fluid, it looked like a combination of thin fluid and purulence. There was different consistency of some of the fluid. Again, it did have a foul smell. We took cultures. We then probed the area as much as I could to be drain as much of the abscess as I could. We then did a wet-to-dry dressing to the area and packed the wound. I placed this dressing on top. The patient tolerated the procedure well. We will follow up with the cultures. I will also start her on Levaquin and Flagyl. cc: Abdirashid Hernandez MD
[2019-01-15 07:31] LABS: BASO# 0.02 X1000 (0.0-0.2); BASO% 0.1 % (0.0-0.8); EOS# 0.01 X1000 (0.0-0.7); EOS% 0.1 % (0.0-10.0); HEMATOCRIT 26.9 % (37.0-47.0); HEMOGLOBIN 8.9 g/dL (12.0-16.0); IMM GRAN% 0.7 % (0.0-0.5); LYMPH# 1.92 X1000 (1.2-3.4); MCH 27.6 PG (27-31); MCHC 33.1 g/dL (33-37); MCV 83.3 FL (81-99); MONO# 1.01 X1000 (0.11-0.59); MONO% 7.4 % (1.7-9.3); MPV 9.2 FL (7.4-10.4); NEUT# 10.63 X1000 (1.4-6.5); NEUT% 77.7 % (42.2-75.2); PLT 324 X1000 (130-400); RBC 3.23 XMIL (4.2-5.4); RDW 13.1 % (11.5-14.5); WBC 13.69 X1000 (4.8-10.8)
[2019-01-15 07:40] LABS: INR 1.12; PROTIME 14.5 Seconds (11.0-16.0)
[2019-01-15 07:41] LABS: PTT 31.5 Seconds (22.3-41.8)
[2019-01-15 07:55] LABS: AGAP 12; BUN 11 mg/dL (8-22); CHLORIDE 76 mmol/L (98-107); GLUCOSE 101 mg/dL (70-104); SODIUM 129 mmol/L (136-145); TCO2 41 mmol/L (25-35)
[2019-01-15 07:56] LABS: ALB/GLOB RATIO 0.6; ALBUMIN 2.3 g/dL (3.5-5.0); ALKALINE PHOSPHATASE 84 U/L (32-104); CALCIUM 8.4 mg/dL (8.8-10.2); COSMO 258; CREATININE 0.5 mg/dL (0.5-0.9); ESTIMATED GFR > 60; GOT 17 U/L (10-30); GPT 9 U/L (10-36); MAGNESIUM 1.7 mg/dL (1.5-2.7); TOTAL BILIRUBIN 0.67 mg/dL (0.20-1.00); TOTAL PROTEIN 6.1 g/dL (6.3-8.3)
--- NOTE | 2019-01-15 08:06 | EKG Report ---
Test Performed on : 01/15/2019 08:00:02 AM Test Reason : hypokalemia Blood Pressure : / mmHG Vent. Rate : 076 BPM Atrial Rate : 076 BPM P-R Int : 144 ms QRS Dur : 096 ms QT Int : 416 ms P-R-T Axes : 030 019 001 degrees QTc Int : 468 ms Normal sinus rhythm. ST & T wave abnormality, consider anterolateral ischemia Prolonged QT Abnormal ECG When compared with ECG of 14-JAN-2019 12:05, (Unconfirmed) QT has shortened Confirmed by Myah Ty MD ([id number]) on 01/15/2019 1:00:43 PM
[2019-01-15 08:09] LABS: POTASSIUM 2.3 mmol/L (3.5-5.1)
[2019-01-15 08:10] LABS: FREE T4 1.63 ng/dL (0.93-1.70); TSH 3.43 uIUmL (0.27-4.20)
[2019-01-15] MEDS: KLONOPIN PO SCH ×2 (09:15→20:09)
[2019-01-15] MEDS: NEXIUM PO SCH (09:15)
[2019-01-15] MEDS: ASPIRIN PO SCH (09:15)
[2019-01-15] MEDS: NEURONTIN PO SCH ×4 (09:16→20:13)
[2019-01-15] MEDS: COREG PO SCH ×2 (09:16→20:09)
[2019-01-15] MEDS: VASOTEC PO SCH ×2 (09:16→20:09)
[2019-01-15] MEDS: HYDROCHLOROTHIAZIDE PO SCH ×2 (09:16→20:09)
[2019-01-15] MEDS: ZYLOPRIM PO SCH (09:17)
[2019-01-15] MEDS: SYNTHROID PO SCH (09:17)
[2019-01-15] MEDS: PERCOCET-10 PO PRN ×2 (09:41→20:10)
[2019-01-15] MEDS: MAG-OX PO SCH ×2 (09:41→09:51)
[2019-01-15] MEDS: FLAGYL 500 MG/NS 500 MG/100 ML IVPB IV SCH ×2 (09:42→20:08)
[2019-01-15] MEDS ORDERED: MAGNESIUM SULFATE 2 GM/S.W.I. 2 GM/50 ML IVPB IV ONE (09:48)
[2019-01-15] MEDS ORDERED: POTASSIUM CHLORIDE 80 MEQ in NS 500 ML IV ONE (09:49)
[2019-01-15] MEDS: VYVANSE PO SCH (09:51)
--- NOTE | 2019-01-15 10:13 | PROGRESS NOTE ---
DATE: 01/15/2019 SUBJECTIVE: She feels a little better today. Dr. Hernandez had taken her to surgery yesterday. Incision and drainage of the left lower quadrant fluid collection, and cultures were obtained. OBJECTIVE: On exam this morning, she is awake and alert. She is requesting something for pain, especially when she gets her wound dressed. Temperature 98 degrees, pulse 75, respirations 15, blood pressure 106/63. Pupils are equal and round. Lungs are clear in all lung ribera. Cardiovascular Examination: Regular rhythm and rate without murmur or S3. Urine output is 1700 mL. ASSESSMENT AND PLAN: 1. Electrolyte abnormalities, hypokalemia, and intravascular fluid dehydration. We do have intravenous lines going in with potassium. I will give her some extra potassium again, intravenously this morning. Her magnesium was 1.7 so I will probably give her 2 g of magnesium as well. 2. Abdominal pain, left lower quadrant. This was drained surgically. 3. Current orders. She is on Levaquin 750 mg intravenous every 24 hours. She is allergic to penicillin. 4. Hypertension. Blood pressure appears controlled. 5. Bipolar, schizophrenia. Aware. 6. History of gout. 7. History of hypothyroidism. cc: Guy Carter MD
[2019-01-15] MEDS: KLOR-CON PO SCH ×2 (10:19→20:09)
[2019-01-15] MEDS: NS + KCL 40 MEQ 1,000 ML IV SCH ×2 (10:19→19:46)
[2019-01-15] MEDS: LEVAQUIN 750 MG/D5W 750 MG/150 ML IVPB IV SCH (10:19)
[2019-01-15] MEDS: MORPHINE IV PRN (12:54)
[2019-01-15] MEDS: FERROUS SULFATE PO SCH (20:09)
[2019-01-16] MEDS: FLAGYL 500 MG/NS 500 MG/100 ML IVPB IV SCH ×3 (04:12→21:46)
[2019-01-16] MEDS: NS + KCL 40 MEQ 1,000 ML IV SCH ×2 (06:08→17:53)
--- NOTE | 2019-01-16 06:30 | GENERAL SURGERY PROGRESS NOTE ---
DATE: 01/16/2019 SUBJECTIVE: Patient seems to be doing better. She is feeling better overall. She is still having drainage from her incision in the left lower quadrant that does have some foul smell, and does have some feculent-like material mixed in with pus. OBJECTIVE: Vital Signs: Patient is currently afebrile. Her vital signs are stable. General: No acute distress. HEENT: Normocephalic, atraumatic. Pupils equal, round, reactive to light. Mucous membranes moist. Oropharynx benign. Neck: Supple. Trachea midline. Cardiovascular: Regular rate and rhythm. Lungs: Grossly clear. Abdomen: Soft. Wound VAC in place with good seal. Left lower quadrant incision with ostomy appliance. With that removed, probed the wound, drained a combination of foul-smelling fluid and pus. Repacked the wound with Vashe-soaked gauze. Extremities: Moves all extremities. Neurologic: Grossly intact. Skin: No signs of jaundice but wounds as noted above. Vascular: All extremities perfused. LABORATORY: Reviewed from yesterday. White blood cell count 13, hematocrit 26, platelet count 324,000. Sodium is 129, potassium is 2.3, chloride 76, bicarb 41. Albumin is 2.3. ASSESSMENT AND PLAN: A 48-year-old female with electrolyte abnormalities and abdominal pain. 1. Electrolyte abnormalities. At this time, continue resuscitation. Appreciate Dr. Carter's help. Her potassium and electrolytes are improving, so we will continue to monitor. 2. Abdominal pain. At this time, I do have a high degree of suspicion that it is a fistula. If it is entero- versus colonic fistula is hard to tell, the smell smells like colonic, although the CT scan does not seem to suggest any kind a connection between the colon and this area. It is hard to also quantify the output, at this point, as she has a combination of pus and fecal contents, possibly. I feel like the area has been drained adequately. We made a small incision that if it is a fistula tract developing then it should be amenable to closure over time. If we can get a quantifiable amount of drainage, may need to consider something like NPO and TPN. We may need to even consider that anyway given her albumin being so low but, at this point, she is too soon out of her recent surgery to do anything surgically, so we will have to manage her with local wound care. I had an extensive discussion this morning with the patient about this, the potential for enterocutaneous fistula, and she voiced understanding. She wants to proceed with full course treatment. She does want try to hold off on surgery. My partners will cover over the weekend while I am gone. cc: Abdirashid Hernandez MD
[2019-01-16] MEDS: SYNTHROID PO SCH (09:22)
[2019-01-16] MEDS: FERROUS SULFATE PO SCH ×2 (09:22→21:47)
[2019-01-16] MEDS: ASPIRIN PO SCH (09:22)
[2019-01-16] MEDS: VASOTEC PO SCH ×2 (09:22→21:47)
[2019-01-16] MEDS: KLOR-CON PO SCH ×2 (09:22→21:46)
[2019-01-16] MEDS: HYDROCHLOROTHIAZIDE PO SCH ×2 (09:22→21:46)
[2019-01-16] MEDS: NEXIUM PO SCH (09:22)
[2019-01-16] MEDS: KLONOPIN PO SCH ×2 (09:22→21:46)
[2019-01-16] MEDS: COREG PO SCH ×2 (09:22→21:47)
[2019-01-16] MEDS: MAG-OX PO SCH (09:22)
[2019-01-16] MEDS: ZYLOPRIM PO SCH (09:23)
[2019-01-16] MEDS: PERCOCET-10 PO PRN ×3 (09:23→21:47)
[2019-01-16] MEDS: HEPARIN SUBQ SCH ×2 (09:24→15:16)
[2019-01-16] MEDS: VYVANSE PO SCH (09:28)
[2019-01-16] MEDS: NEURONTIN PO SCH ×3 (09:29→21:49)
[2019-01-16] MEDS: LEVAQUIN 750 MG/D5W 750 MG/150 ML IVPB IV SCH (09:48)
--- NOTE | 2019-01-16 15:00 | PROGRESS NOTE ---
DATE: 01/16/2019 SUBJECTIVE: Ms. Meyer is feeling a little bit better. There is suspicion that she has a fistula, so we are going to try her just with the total parental nutrition and see if that will close. OBJECTIVE: Vital Signs: Temperature is 98.5 degrees, pulse 76, respirations 19, blood pressure 105/51. Eyes: Pupils are equal and round. Lungs: Lungs are clear in all lung ribera. Cardiovascular exam: Regular rhythm and rate without murmur or S3. Abdomen: Soft. Skin: Skin is warm and dry. : Urine output 1300 mL. ASSESSMENT AND PLAN: She presented with abdominal pain, electrolyte abnormalities, high suspicion for fistula; if it is entero versus colonic fistula, it is hard to tell. It smells like colonic. CT scan did not seem to suggest any kind of connection between the colon in this area. It is also hard to quantify the output. If it is a fistula tract developing, it should be amenable to closure over time. So, I think the plan is to try and do total parenteral nutrition and see how we do. Continue present antibiotics. She is on Coreg 25 mg twice daily, aspirin 325 mg a day, allopurinol 100 mg daily, Nexium 40 mg a day, metronidazole 500 mg intravenous every 8 hours, hydrochlorothiazide 12.5 mg twice daily, Levaquin 750 mg intravenous every 24 hours, Synthroid 50 mcg oral daily. She is taking Lisdexamfetamine 20 mg daily and on normal saline at present 100 mL with 40 mEq KCl per liter. REVIEW OF HER LAB: We are going to check electrolytes again and magnesium. We will do that now and also check it in the morning. cc: Guy Carter MD
[2019-01-16 15:46] LABS: AGAP 9; BUN 13 mg/dL (8-22); CALCIUM 7.9 mg/dL (8.8-10.2); CHLORIDE 86 mmol/L (98-107); COSMO 257; CREATININE 0.5 mg/dL (0.5-0.9); ESTIMATED GFR > 60; GLUCOSE 122 mg/dL (70-104); MAGNESIUM 1.8 mg/dL (1.5-2.7); POTASSIUM 3.7 mmol/L (3.5-5.1); SODIUM 127 mmol/L (136-145); TCO2 32 mmol/L (25-35)
[2019-01-17] MEDS: HEPARIN SUBQ SCH ×3 (00:51→16:46)
[2019-01-17] MEDS: FLAGYL 500 MG/NS 500 MG/100 ML IVPB IV SCH ×3 (05:19→20:44)
[2019-01-17] MEDS: NS + KCL 40 MEQ 1,000 ML IV SCH (05:19)
[2019-01-17 06:15] LABS: BASO# 0.02 X1000 (0.0-0.2); BASO% 0.2 % (0.0-0.8); EOS# 0.02 X1000 (0.0-0.7); EOS% 0.2 % (0.0-10.0); HEMATOCRIT 26.6 % (37.0-47.0); HEMOGLOBIN 8.7 g/dL (12.0-16.0); IMM GRAN% 1.2 % (0.0-0.5); LYMPH# 2.51 X1000 (1.2-3.4); LYMPH% 26.6 % (20.5-51.1); MCH 27.8 PG (27-31); MCHC 32.7 g/dL (33-37); MONO# 0.69 X1000 (0.11-0.59); MONO% 7.3 % (1.7-9.3); MPV 9.5 FL (7.4-10.4); NEUT# 6.09 X1000 (1.4-6.5); NEUT% 64.5 % (42.2-75.2); PLT 343 X1000 (130-400); RBC 3.13 XMIL (4.2-5.4); RDW 13.8 % (11.5-14.5); WBC 9.44 X1000 (4.8-10.8)
[2019-01-17 06:16] LABS: IMM GRAN# 0.11 X1000 (0.0-0.04)
[2019-01-17 06:52] LABS: AGAP 8; ALB/GLOB RATIO 0.5; ALBUMIN 2.1 g/dL (3.5-5.0); ALKALINE PHOSPHATASE 112 U/L (32-104); BUN 9 mg/dL (8-22); CALCIUM 8.1 mg/dL (8.8-10.2); CHLORIDE 95 mmol/L (98-107); COSMO 267; CREATININE 0.6 mg/dL (0.5-0.9); ESTIMATED GFR > 60; GLUCOSE 97 mg/dL (70-104); GOT 13 U/L (10-30); GPT 8 U/L (10-36); MAGNESIUM 1.8 mg/dL (1.5-2.7); POTASSIUM 4.6 mmol/L (3.5-5.1); SODIUM 134 mmol/L (136-145); TCO2 31 mmol/L (25-35); TOTAL BILIRUBIN 0.37 mg/dL (0.20-1.00); TOTAL PROTEIN 6.2 g/dL (6.3-8.3)
[2019-01-17] MEDS: NEURONTIN PO SCH ×3 (10:15→20:55)
[2019-01-17] MEDS: VYVANSE PO SCH (10:16)
[2019-01-17] MEDS: LEVAQUIN 750 MG/D5W 750 MG/150 ML IVPB IV SCH (10:23)
[2019-01-17] MEDS: KLONOPIN PO SCH ×2 (10:24→20:44)
[2019-01-17] MEDS: SYNTHROID PO SCH (10:24)
[2019-01-17] MEDS: ZYLOPRIM PO SCH (10:24)
[2019-01-17] MEDS: ASPIRIN PO SCH (10:25)
[2019-01-17] MEDS: KLOR-CON PO SCH ×2 (10:25→20:45)
[2019-01-17] MEDS: FERROUS SULFATE PO SCH ×2 (10:25→20:44)
[2019-01-17] MEDS: MAG-OX PO SCH (10:25)
[2019-01-17] MEDS: NEXIUM PO SCH (10:25)
[2019-01-17] MEDS: HYDROCHLOROTHIAZIDE PO SCH ×2 (10:28→20:44)
[2019-01-17] MEDS: COREG PO SCH ×2 (10:28→20:44)
[2019-01-17] MEDS: VASOTEC PO SCH ×2 (10:29→20:44)
[2019-01-17] MEDS: PERCOCET-10 PO PRN ×2 (10:34→20:44)
--- NOTE | 2019-01-17 13:27 | PROGRESS NOTE ---
DATE: 01/17/2019 SUBJECTIVE: Ms Meyer is feeling better, much more comfortable. OBJECTIVE: Vital signs: She remains afebrile, temperature 98.4 degrees, pulse 81, respirations 16, blood pressure 105/50. HEENT: Pupils are equal round. Lungs: Clear in all lung ribera. Cardiovascular: Regular rhythm and rate without murmur or S3. Abdomen: Soft. Skin: Warm and dry. Genitourinary: Urine output was 3000 mL. LABORATORY DATA: Electrolyte abnormalities, which is improved. Potassium is 4.6, sodium 134, chloride 95, BUN 9, creatinine 0.6. White count has come down to 9440, hematocrit 26, hemoglobin 8.7, platelet count of 343,000. ASSESSMENT AND PLAN: 1. Electrolyte abnormalities which have resolved. 2. Abdominal pain. Has a high degree of suspicion that she has a fistula, and enteral versus colonic fistula and suspect it is colonic. CT scan does not suggest any kind of connection between the colon. She has a combination of pus and fecal contents described. Area has been draining adequately. I made a small incision. If there is a fistula tract developing, it may be amenable to closure over time. Continue TPN nutrition. She reports her pain medication is working well. Continue present antibiotics. cc: Guy Carter MD
--- NOTE | 2019-01-17 14:30 | GENERAL SURGERY PROGRESS NOTE ---
DATE: 01/17/2019 SUBJECTIVE: The patient overall is feeling better. She has some soreness in her left lower abdomen around the area of drainage but is eating regular food. She has had bowel movements and passed gas. No nausea, vomiting, or fever. OBJECTIVE: She is afebrile. Vital signs are stable.General: She is awake, alert, oriented x3. No acute distress. CV: Regular rate and rhythm. Respiratory: No work of breathing. Gastrointestinal: Soft. The midline has a wound VAC in place without surrounding erythema. The left lateral abdomen has cloudy brownish drainage which is packed and bagged with an ostomy bag. I removed the packing. It is a thin brown and green-tinged fluid suspicious for succus entericus. I repacked the wound. LABORATORY: White blood cell count 9.4, hemoglobin 8.7, hematocrit 26. Electrolytes reviewed, unremarkable. 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 At this point, the fistula appears to be controlled with drainage to the skin rather than intraabdominal drainage. We will continue to allow her to have a diet for now, but if the output is persistently high then she will probably need to be made n.p.o. and placed on TPN for several more weeks. I think over time, there is a good chance of this closing without another operation. cc: Rocky Schreiber MD
[2019-01-18] MEDS: HEPARIN SUBQ SCH ×3 (01:58→16:32)
[2019-01-18] MEDS: FLAGYL 500 MG/NS 500 MG/100 ML IVPB IV SCH ×3 (05:16→21:34)
[2019-01-18] MEDS: LEVAQUIN 750 MG/D5W 750 MG/150 ML IVPB IV SCH (09:38)
[2019-01-18] MEDS: KLONOPIN PO SCH ×2 (09:39→21:35)
[2019-01-18] MEDS: MAG-OX PO SCH (09:39)
[2019-01-18] MEDS: KLOR-CON PO SCH ×2 (09:39→21:38)
[2019-01-18] MEDS: HYDROCHLOROTHIAZIDE PO SCH ×2 (09:40→21:37)
[2019-01-18] MEDS: ZYLOPRIM PO SCH (09:40)
[2019-01-18] MEDS: FERROUS SULFATE PO SCH ×2 (09:40→21:35)
[2019-01-18] MEDS: VASOTEC PO SCH ×2 (09:40→21:34)
[2019-01-18] MEDS: NEXIUM PO SCH (09:40)
[2019-01-18] MEDS: NEURONTIN PO SCH ×3 (09:40→21:34)
[2019-01-18] MEDS: SYNTHROID PO SCH (09:40)
[2019-01-18] MEDS: COREG PO SCH ×2 (09:40→21:36)
[2019-01-18] MEDS: ASPIRIN PO SCH (09:41)
[2019-01-18] MEDS: PERCOCET-10 PO PRN ×2 (09:48→21:36)
--- NOTE | 2019-01-18 10:20 | GENERAL SURGERY PROGRESS NOTE ---
DATE: 01/18/2019 SUBJECTIVE: The patient is overall doing well. No new abdominal complaints. OBJECTIVE: She is afebrile. Vital signs are stable. General: She is awake, alert, and oriented x3. No acute distress. GI: Soft, nondistended. Mildly tender in the left flank. Her drainage bag has really very little drainage in it and it was replaced roughly 7 hours ago. The overall output is hard to quantify at this time. Laboratory: None today. 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 The drainage is controlled to a bag. She is hemodynamically stable. She does not have any peritonitis. We will continue her current care and Dr. Hernandez will reassess tomorrow if there is any further need to wash out that wound and as far as ongoing nutritional strategy for her. cc: Rocky Schreiber MD
[2019-01-18] MEDS: VYVANSE PO SCH (10:34)
--- NOTE | 2019-01-18 14:01 | PROGRESS NOTE ---
DATE: 01/18/2019 SUBJECTIVE: Ms. Meyer is feeling better. She does complain of her mouth feeling dry, feels like she is getting thrush. OBJECTIVE: Temperature 98.0 degrees. Remains afebrile. Pulse 80, respirations 16, blood pressure 106/45. Pupils are equal and round. Lungs are clear in all lung ribera. Cardiovascular Examination: Regular rhythm and rate without murmur or S3. Abdomen is soft. Skin is warm and dry. Urine output is 3500 mL. ASSESSMENT AND PLAN: 1. 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 Drainage is controlled to a bag. She is hemodynamically stable. Does not have any peritonitis. I think they had advanced her diet. Going to reassess. Dr. Hernandez is going to reassess tomorrow, see if he needs to wash out the wound. 2. Abdominal pain, which is resolved. 3. Oral thrush suspected. We will put her on nystatin swish and swallow. 4. Otherwise, continue present orders and regimen. cc: Guy Carter MD
[2019-01-18] MEDS: MYCOSTATIN SUSP PO SCH ×2 (16:32→21:35)
[2019-01-19] MEDS: HEPARIN SUBQ SCH ×3 (01:09→17:14)
[2019-01-19] MEDS: FLAGYL 500 MG/NS 500 MG/100 ML IVPB IV SCH ×3 (04:10→20:25)
[2019-01-19] MEDS ORDERED: [UNRECOGNIZED DRUG - OTHER] NG ONE (05:44)
--- NOTE | 2019-01-19 06:56 | GENERAL SURGERY PROGRESS NOTE ---
DATE: 01/19/2019 SUBJECTIVE: Patient doing better. She seems to be feeling okay. Reviewed notes from the weekend. Still hard to quantify the output out of her left lower quadrant but it seems to be overall decreasing per the patient. She is tolerating her diet and she is having bowel movements. OBJECTIVE: Vital Signs: The patient is currently afebrile. Her vital signs are stable. General Examination: No acute distress. HEENT: Normocephalic, atraumatic. Pupils equal, round, reactive to light. Mucous membranes moist. Oropharynx benign. Neck: Supple. Trachea midline. Cardiovascular: Regular rate and rhythm. Lungs: Grossly clear. Abdomen: Wound VAC in place. The left lower quadrant incision dressing changed. Only purulence came at this point. Extremities: Moves all extremities. Neurologic: Grossly intact. Skin: No signs of jaundice. Vascular: All extremities perfused. Laboratory: Reviewed from the weekend. Microbiology shows mixed theo. ASSESSMENT AND PLAN: A 48-year-old female with electrolyte abnormalities and abdominal pain. 1. Electrolyte abnormalities. At this time, she seems to be improving electrolyte abnormalities. We will continue to monitor. 2. Abdominal pain. At this time, still a possibility of fistula versus abscess is there. Today's came out mostly purulence. We have cultured her and it came back mixed theo. I have got her on Levaquin and Flagyl, given the likely source being gastrointestinal so we should be covering it. She does have a penicillin allergy. I will have the patient take in charcoal to see if charcoal comes out of this incision. If it does, then we have confirmed that there is an enterocutaneous fistula. If not, then we will continue to manage her with antibiotic as those it is an abscess. She is likely getting close to being discharged. If this is an abscess, we will place a wound VAC over it. cc: Abdirashid Hernandez MD
[2019-01-19] MEDS: ASPIRIN PO SCH (08:47)
[2019-01-19] MEDS: NEURONTIN PO SCH ×3 (08:47→21:45)
[2019-01-19] MEDS: COREG PO SCH ×2 (08:47→21:44)
[2019-01-19] MEDS: KLOR-CON PO SCH ×2 (08:48→21:45)
[2019-01-19] MEDS: HYDROCHLOROTHIAZIDE PO SCH ×2 (08:48→21:44)
[2019-01-19] MEDS: SYNTHROID PO SCH (08:48)
[2019-01-19] MEDS: MAG-OX PO SCH (08:48)
[2019-01-19] MEDS: MYCOSTATIN SUSP PO SCH ×4 (08:48→20:26)
[2019-01-19] MEDS: ZYLOPRIM PO SCH (08:48)
[2019-01-19] MEDS: KLONOPIN PO SCH ×2 (08:49→20:25)
[2019-01-19] MEDS: FERROUS SULFATE PO SCH ×2 (08:49→20:25)
[2019-01-19] MEDS: NEXIUM PO SCH (08:49)
[2019-01-19] MEDS: VASOTEC PO SCH ×2 (08:49→21:44)
[2019-01-19] MEDS: VYVANSE PO SCH (08:49)
[2019-01-19] MEDS: LEVAQUIN 750 MG/D5W 750 MG/150 ML IVPB IV SCH (09:01)
[2019-01-19] MEDS: PERCOCET-10 PO PRN (09:02)
--- NOTE | 2019-01-19 12:30 | PROGRESS NOTE ---
DATE: 01/19/2019 SUBJECTIVE: Ms. Meyer does feel better. Her mouth feels a little better. OBJECTIVE: She remains afebrile with pulse of 74, respirations 18, and blood pressure 105/47. HEENT: Pupils are equal and round. Lungs: Clear in all lung ribera. Cardiovascular: Regular rhythm and rate without murmur or S3. Abdomen: Soft. Skin: Warm and dry. Urine output is 4300 mL. ASSESSMENT AND PLAN: 1. Electrolyte abnormalities which are improving. 2. Suspicion for a colonic cutaneous fistula so possibly a fistula versus abscess. Her culture came back with mixed theo, so we are going to give her Levaquin and Flagyl. Continue that. We will have her take some charcoal to see if the charcoal comes out of the incision, which could confirm an abscess or a fistula. So, continue present management. Clinically, she does better. 3. Suspect some oral thrush. I have her on nystatin. Continue present regimen. 4. Blood pressure appears well regulated. Electrolytes: We will recheck this morning and again tomorrow. On the , sodium was 134, potassium 4.6, chloride 95, BUN 9, and creatinine 0.6. cc: Guy Carter MD
[2019-01-19 13:30] LABS: AGAP 13; BUN 10 mg/dL (8-22); CALCIUM 8.5 mg/dL (8.8-10.2); CHLORIDE 91 mmol/L (98-107); COSMO 260; CREATININE 0.8 mg/dL (0.5-0.9); ESTIMATED GFR > 60; GLUCOSE 107 mg/dL (70-104); POTASSIUM 3.7 mmol/L (3.5-5.1); SODIUM 130 mmol/L (136-145); TCO2 26 mmol/L (25-35)
[2019-01-19] MEDS: MORPHINE IV PRN (14:04)
[2019-01-20] MEDS: HEPARIN SUBQ SCH ×3 (00:42→16:43)
[2019-01-20] MEDS: FLAGYL 500 MG/NS 500 MG/100 ML IVPB IV SCH ×3 (03:38→20:57)
--- NOTE | 2019-01-20 06:11 | GENERAL SURGERY PROGRESS NOTE ---
DATE: 01/20/2019 SUBJECTIVE: Patient seems to be doing about the same. We did give her charcoal yesterday. When Wound Care came by and change her dressing, I did not see any charcoal at the incision. She has had darker stools to suggest the charcoal has made it all the way to her colon. She has not noticed any charcoal out of her left lower quadrant incision. OBJECTIVE: Vital Signs: Patient is currently afebrile. Her vital signs stable. General: No acute distress. HEENT: Normocephalic, atraumatic. Pupils equal, round, react to light, reactive to light. Mucous membranes moist. Oropharynx benign. Neck: Supple. Trachea midline. Cardiovascular: Regular rate and rhythm. Lungs: Grossly clear. Abdomen: Soft. Wound VAC in place to midline left lower quadrant incision which is purulence. No charcoal noted. Repacked. ASSESSMENT AND PLAN: A 48-year-old female with electrolyte abnormalities and abdominal pain. 1. Electrolyte abnormalities. At this time, electrolyte abnormalities continue to be improving. Hopefully, we can get her to a point where it is safe for her to be discharged from an electrolyte standpoint. 2. Abdominal pain. At this time, the possibility of fistula versus abscess is still there, although mostly purulence came at this time and I did not see any charcoal. This seems to go against the enterocutaneous fistula idea. Wound Care recheck today. If she does not seem to have any charcoal, may place a wound VAC to that left lower quadrant incision. Plan on discharge today, if not tomorrow, again pending evaluation by the Hospitalist for electrolyte abnormalities. cc: Abdirashid Hernandez MD
[2019-01-20 07:51] LABS: HEMATOCRIT 26.8 % (37.0-47.0); HEMOGLOBIN 8.6 g/dL (12.0-16.0); LYMPH% 29.9 % (20.5-51.1); MCH 27.2 PG (27-31); MCHC 32.1 g/dL (33-37); MCV 84.8 FL (81-99); MPV 9.2 FL (7.4-10.4); NEUT% 56.7 % (42.2-75.2); PLT 421 X1000 (130-400); RBC 3.16 XMIL (4.2-5.4); RDW 14.4 % (11.5-14.5); WBC 8.42 X1000 (4.8-10.8)
[2019-01-20 07:52] LABS: BASO# 0.04 X1000 (0.0-0.2); BASO% 0.5 % (0.0-0.8); EOS# 0.02 X1000 (0.0-0.7); EOS% 0.2 % (0.0-10.0); IMM GRAN# 0.21 X1000 (0.0-0.04); IMM GRAN% 2.5 % (0.0-0.5); LYMPH# 2.52 X1000 (1.2-3.4); MONO# 0.86 X1000 (0.11-0.59); MONO% 10.2 % (1.7-9.3); NEUT# 4.77 X1000 (1.4-6.5)
[2019-01-20 08:08] LABS: AGAP 10; ALB/GLOB RATIO 0.5; ALBUMIN 2.3 g/dL (3.5-5.0); ALKALINE PHOSPHATASE 68 U/L (32-104); BUN 9 mg/dL (8-22); CALCIUM 8.8 mg/dL (8.8-10.2); CHLORIDE 93 mmol/L (98-107); COSMO 261; CREATININE 0.6 mg/dL (0.5-0.9); ESTIMATED GFR > 60; GLUCOSE 99 mg/dL (70-104); GOT 15 U/L (10-30); GPT 8 U/L (10-36); MAGNESIUM 1.8 mg/dL (1.5-2.7); POTASSIUM 3.6 mmol/L (3.5-5.1); SODIUM 131 mmol/L (136-145); TCO2 28 mmol/L (25-35); TOTAL BILIRUBIN 0.25 mg/dL (0.20-1.00); TOTAL PROTEIN 6.6 g/dL (6.3-8.3)
--- NOTE | 2019-01-20 08:33 | INFECTIOUS DISEASE CONSULT REP ---
DATE: 01/20/2019 CONCLUSION: The patient is status post colectomy for diverticulitis, and it appears that she may have developed a left lower quadrant abscess. RECOMMENDATIONS: I have collected a deep culture wound, and have sent it to the laboratory for identification and susceptibility testing of any organisms that grow. If the patient's white count does go up or if she starts having fever, then I think we should repeat the patient's CT scan of the abdomen and pelvis. DISCUSSION: The patient had surgery to remove part of her colon, which had diverticulitis. She went home after surgery, but came back in because she was feeling weak and lethargic and it was hard for her to walk. She also had chills. She was found to have a low potassium level at 2.0, and the chloride was 69. The sodium was 129. She appeared to have mild vascular volume depletion. Most recently, her CBC shows a white count of 9440, hemoglobin 8.7, and platelet count 343,000. Creatinine is 0.8. GFR is greater than 60. Liver function studies are normal. Urine culture was mixed. CT scan of the abdomen and pelvis showed an air-fluid collection in the left abdomen and anterior pelvic wall. The patient had charcoal yesterday, and it did not appear either in the patient's midline incision or in the left lower quadrant area where there was a fistula draining purulent fluid, but as mentioned above, no charcoal appeared there either. The patient, in the hospital, appears to have developed oral candidiasis. The patient's CBC shows a white count of 9440, hemoglobin 8.7, platelet count 343,000. Creatinine is 0.8. GFR is greater than 60. Liver function studies are normal. Urine culture was mixed. The patient's CT scan showed an air-fluid subcutaneous collection in the left abdomen and anterior pelvic wall. OFFICE ENGINEER HISTORY: She is a 3, para 3, AB 0. She has had a tubal ligation. REVIEW OF SYSTEMS: Eyes and Ears: The patient hears and sees okay. Neck: No stiffness. Respiratory: No cough or dyspnea. Cardiac: No chest pain or palpitations. GI: No nausea, vomiting, or diarrhea. Neurologic: The patient is alert. She can ambulate on her own. She does not have a tremor. Her memory as regarding her medical history was intact. PAST MEDICAL HISTORY: Positive for: 1. Bipolar and schizophrenia. 2. Hypertension. 3. Gastroesophageal reflux disease. 4. Obesity. 5. Diverticulitis. INFECTIOUS DISEASE HISTORY: Positive for urinary tract infection, and negative for pneumonia. PAST SURGICAL HISTORY: The patient recently had an anterior colectomy for diverticulitis. She has had 3 labor and deliveries, and a tubal ligation. FAMILY HISTORY: Positive for cancer in the patient's daughter. SOCIAL HISTORY: The patient is . She recently lost her oldest daughter to cancer. She is raising 3 grandchildren. The patient does smoke some marijuana about once a week. She does not drink alcoholic beverages. HOME MEDICATIONS: Include allopurinol, Coreg, clonazepam, quinapril, hydrochlorothiazide, Nexium, gabapentin, Vyvanse, olanzapine, and tramadol. ALLERGIES: The patient is allergic to penicillin. It caused a rash. PHYSICAL EXAMINATION: Vital Signs: Temperature is 98.2 degrees, pulse 80, respirations 20, blood pressure is 115/63. The patient is 5 feet 8 inches tall, weighs 274 pounds. General: This is an obese, middle-aged female. She is in no acute distress. HEENT: She can hear my spoken words and see near objects. She still does have some white coating of her tongue due to oral candidiasis. Neck: No meningismus. Lungs: Clear to auscultation. Cardiovascular: Heart rate is regular. Abdomen: Soft. It was not tender to light palpation. In the midline, there is a VAC in place, which is over the patient's incision. In the left lower quadrant, there is a fistulous opening. I stuck a Q-tip into the fistulous area, and extended very deep into the abdomen. There was purulent fluid on the tip of the Q-tip that I put in the wound, and there was no odor to it. Neurologic: The patient is alert. She can move her extremities. There is no tremor. Extremities: The patient has bilateral leg edema, but no erythema. Neurologic: The patient is alert. She can move her extremities. There is no tremor. Her memory as regarding her medical history appeared intact. Integument: No rash. Thank you for the consult. cc: MD JAXSON Jarrett
[2019-01-20] MEDS: HYDROCHLOROTHIAZIDE PO SCH ×2 (08:51→21:02)
[2019-01-20] MEDS: MYCOSTATIN SUSP PO SCH ×4 (08:51→20:57)
[2019-01-20] MEDS: FERROUS SULFATE PO SCH ×2 (08:52→20:57)
[2019-01-20] MEDS: COREG PO SCH ×2 (08:52→21:01)
[2019-01-20] MEDS: SYNTHROID PO SCH (08:52)
[2019-01-20] MEDS: ZYLOPRIM PO SCH (08:52)
[2019-01-20] MEDS: ASPIRIN PO SCH (08:52)
[2019-01-20] MEDS: KLOR-CON PO SCH ×2 (08:52→20:57)
[2019-01-20] MEDS: NEXIUM PO SCH (08:52)
[2019-01-20] MEDS: MAG-OX PO SCH (08:52)
[2019-01-20] MEDS: VASOTEC PO SCH ×2 (08:52→21:02)
[2019-01-20] MEDS: KLONOPIN PO SCH ×2 (08:52→20:57)
[2019-01-20] MEDS: LEVAQUIN 750 MG/D5W 750 MG/150 ML IVPB IV SCH (08:53)
[2019-01-20] MEDS: VYVANSE PO SCH (08:54)
[2019-01-20] MEDS: NEURONTIN PO SCH ×4 (08:54→21:06)
--- NOTE | 2019-01-20 17:56 | PROGRESS NOTE ---
DATE: 01/20/2019 SUBJECTIVE: The patient is resting comfortably in bed. She has no complaints at this home. OBJECTIVE: Vital Signs: Temperature 97.4 degrees, blood pressure 99/51, heart rate 79, respirations 16, O2 saturation is 99% on room air. General: This is a morbidly obese female lying in bed, in no acute distress. Heart: S1, S2 normal. Regular rate and rhythm. Lungs: Equal air entry bilaterally. No wheezing. No rales. No rhonchi. Abdomen: Positive bowel sounds. Soft, nontender, nondistended. Extremities: No edema. No cyanosis. Neurologic: The patient is alert and oriented x4. LABS: White blood cell count 8.4, hemoglobin 8.6, hematocrit 26, platelets 421,000. Sodium 131, potassium 3.6, chloride 93, CO2 28, BUN 9, creatinine 0.6, glucose 99. ASSESSMENT AND PLAN: 1. Left lower quadrant abscess status post colectomy secondary to diverticulitis. Continue with IV antibiotics. Dr. Odell has ordered a wound culture. Will follow up the results. Continue with wound care. 2. Morbid obesity. Aware. 3. Hypertension. Continue on Vasotec and Coreg. 4. Neuropathy. Continue on Neurontin. 5. Hypothyroidism. Continue on Synthroid. 6. Thrush. Continue on nystatin. 7. Chronic hyponatremia. Slightly improved. We will continue to monitor closely. 8. Deep vein thrombosis prophylaxis. Continue on heparin. cc: Alisha Tavares MD MTDD
[2019-01-21] MEDS: HEPARIN SUBQ SCH ×2 (00:01→08:06)
[2019-01-21] MEDS: FLAGYL 500 MG/NS 500 MG/100 ML IVPB IV SCH (04:22)
--- NOTE | 2019-01-21 05:52 | GENERAL SURGERY PROGRESS NOTE ---
DATE: 01/21/2019 SUBJECTIVE: The patient seems to be doing well. No charcoal came out of her incision in the left lower quadrant. OBJECTIVE: Vitals: The patient is currently afebrile. Her vital signs are stable. General: No acute distress. Cardiovascular: Regular rate and rhythm. Lungs: Grossly clear. Abdomen: Soft. Wound VAC noted to midline. Wound VAC noted to her left lower quadrant. MICROBIOLOGY: Cultures pending. LABORATORY DATA: Yesterday, white blood cell count normal. ASSESSMENT AND PLAN: A 48-year-old female with electrolyte abnormalities and abdominal pain. 1. Electrolyte abnormalities. At this time, I think she is back to her baseline. Hopefully, she can be discharged here soon. 2. Abdominal pain. At this time, I think I have almost ruled out a fistula since there is no charcoal. We put a wound VAC to the area. Once we can get everything arranged for home health and wound VAC, she can be discharged. Hopefully, this can be accomplished today. cc: Abdirashid Hernandez MD
--- NOTE | 2019-01-21 06:29 | INFECTIOUS DISEASE PROGRESS NO ---
DATE: 01/21/2019 PRESENT ILLNESS: The patient had developed a left lower quadrant abdominal abscess following colectomy because of diverticulitis. The patient also has oral candidiasis. MEDICATIONS: The patient is on Levaquin, Flagyl, and nystatin. PHYSICAL EXAMINATION: Vital Signs: Temperature is 98.1 degrees, pulse 70, respirations 16, blood pressure 118/60. Generally: This is an obese middle-aged female. She is in no acute distress. Head, Eyes, Ears, Nose, and throat: She can hear my spoken words and see near objects. The patient's tongue has some white coating to it. Neck: No pain with movement of her neck. Lungs: Clear to auscultation. Cardiovascular: Heart rate is regular. Abdomen: Soft and not tender to light palpation. The patient has the VAC on in 2 sites, one where her incision is and the other one is in the left lower quadrant where there had been purulent drainage coming out which might have come from the abscess. Neurologic: The patient is alert. She can move her extremities. There is no tremor. Integument: No rash noted. LAB AND X-RAY: There is no radiographic study from yesterday. There is no laboratory results from today. Yesterday, the patient's white count was 8420, hemoglobin 8.6, and platelet count 421,000. The patient's creatinine is 0.6. GFR is greater than 60. Liver function studies are normal. I took a culture from the patient's left lower quadrant fistulous opening and the results are not yet back. ASSESSMENT AND PLAN: The patient may have a left lower quadrant abscess. I yesterday took a culture from the fistulous tract probably draining the abscess. The results are not yet back. The patient may well be going home today. She already has nystatin swish and swallow at home, so that will take care of her oral candidiasis, and as far as antibiotics go, I am going to wait for the result of the culture that I took and then start an antibiotic if indicated while the patient is at home. COMORBIDITIES: The patient previously had diverticulitis. She is obese. She has gastroesophageal reflux disease. cc: David Odell MD MTDIvette
[2019-01-21 07:28] LABS: HEMATOCRIT 27.9 % (37.0-47.0); HEMOGLOBIN 9.1 g/dL (12.0-16.0); MCH 28.3 PG (27-31); MCHC 32.6 g/dL (33-37); MCV 86.9 FL (81-99); MPV 9.1 FL (7.4-10.4); RBC 3.21 XMIL (4.2-5.4); RDW 14.5 % (11.5-14.5); WBC 8.17 X1000 (4.8-10.8)
[2019-01-21 07:45] LABS: AGAP 12; BUN 10 mg/dL (8-22); CHLORIDE 96 mmol/L (98-107); COSMO 263; CREATININE 0.8 mg/dL (0.5-0.9); ESTIMATED GFR > 60; GLUCOSE 95 mg/dL (70-104); POTASSIUM 3.8 mmol/L (3.5-5.1); SODIUM 132 mmol/L (136-145); TCO2 24 mmol/L (25-35)
[2019-01-21] MEDS: LEVAQUIN 750 MG/D5W 750 MG/150 ML IVPB IV SCH (08:03)
[2019-01-21] MEDS: KLOR-CON PO SCH (08:04)
[2019-01-21] MEDS: COREG PO SCH (08:04)
[2019-01-21] MEDS: HYDROCHLOROTHIAZIDE PO SCH (08:04)
[2019-01-21] MEDS: KLONOPIN PO SCH (08:04)
[2019-01-21] MEDS: NEXIUM PO SCH (08:04)
[2019-01-21] MEDS: ASPIRIN PO SCH (08:04)
[2019-01-21] MEDS: MYCOSTATIN SUSP PO SCH (08:04)
[2019-01-21] MEDS: VASOTEC PO SCH (08:05)
[2019-01-21] MEDS: SYNTHROID PO SCH (08:05)
[2019-01-21] MEDS: FERROUS SULFATE PO SCH (08:05)
[2019-01-21] MEDS: ZYLOPRIM PO SCH (08:05)
[2019-01-21] MEDS: MAG-OX PO SCH (08:05)
[2019-01-21] MEDS: VYVANSE PO SCH (08:06)
[2019-01-21] MEDS: NEURONTIN PO SCH (08:06)
[2019-01-21 08:20] VITALS: BP 121/58
[2019-01-21] MEDS: MORPHINE IV PRN (11:01)
--- NOTE | 2019-01-21 14:27 | DISCHARGE SUMMARY ---
ADMISSION DATE: 01/14/2019 DISCHARGE DATE: 01/21/2019 FINAL DISCHARGE DIAGNOSES: 1. Left lower quadrant abscess status post colectomy secondary to diverticulitis. 2. Morbid obesity. 3. Hypertension. 4. Neuropathy. 5. Hypothyroidism. 6. Thrush. 7. Chronic hyponatremia. 8. Anemia. CONSULTATIONS: 1. ID consultation with Dr. Odell. 2. General Surgery consultation with Dr. Hernandez. IMAGIN. Portable chest x-ray which revealed cardiomegaly. 2. CT of the abdomen and pelvis which revealed development of new air and fluid subcutaneous collection within the left abdominal and anterior pelvic wall which could represent a sinus tract or fistula. HOSPITAL COURSE: Ms Meyer is a 48-year-old female with a history of multiple medical problems who presented to the ER with a chief complaint of abdominal pain. In the ER, a CT of the abdomen and pelvis was done that revealed a left lower quadrant abscess and possible fistula. The patient was admitted to the hospitalist service and General Surgery was consulted. After further examination by the general surgeon, it was determined that the patient did not have a fistula. The patient was treated with broad-spectrum antibiotics. Infectious Disease was then consulted, who performed deep culture at the incision at the wound site and wound culture was noted to be growing gram-positive cocci. The patient's symptoms improved and it was determined by both ID and General surgeon that the patient could be discharged home and once the results of the cultures are available, the antibiotic will be called in by Dr. David Odell to the patient's outpatient pharmacy. The patient will be discharged with a wound VAC as well. On the day of discharge, the patient was noted to have a white blood cell count of 8.1 and a temperature of 97.6 degrees. She had no difficulty tolerating her diet. DISCHARGE MEDICATIONS: 1. Percocet 10, 1 tab oral every 6 hours p.r.n. for pain. 2. Allopurinol 100 mg oral daily. 3. Coreg 25 mg oral twice a day. 4. Enalapril/hydrochlorothiazide 1 tab oral twice a day. 5. Nexium 40 mg p.o. daily. 6. Gabapentin 1 tab oral 3 times a day. 7. Tramadol 50 mg oral 3 times a day p.r.n. 8. Aspirin 325 mg oral daily. 9. Klonopin 1 mg oral twice a day. 10. Metamucil 1 tab oral daily. 11. Synthroid 50 mcg oral daily. 12. Ferrous Sulfate 325 mg oral twice a day. DISCHARGE DIET: Low-sodium, low-cholesterol diet. ACTIVITY: As tolerated. FOLLOWUP INSTRUCTIONS: Dr. Odell will be calling the patient tomorrow once he has the results of the wound culture and he will call in an antibiotic to continue the patient's antibiotic therapy for the left lower quadrant abscess. The patient will also need to follow up with Dr. Hernandez as scheduled by his clinic. cc: MD Barbara Bradshaw CRNP
== END 2019-01-21 13:19 | disposition home health service (06) | DRG 988 ==
LOC: SUPCPDRO → ED 11:46 → EDIPHOLD 16:20 → SUATTDRO 16:20 → 1N 20:02
PROVIDERS: ATTEND Internal Medicine